=== PATIENT | male | born 1970 | race Caucasian/White ===

== ENCOUNTER → 2018-09-19 | Outpatient (CLI) | payer OTHER ==
[2018-09-19 16:21] LABS: ABSOLUTE BASOPHILS 0.1 thou/uL (0.0-0.2); ABSOLUTE EOSINOPHILS 0.1 thou/uL (0.0-0.7); ABSOLUTE LYMPHOCYTES 1.6 thou/uL (0.8-5.3); ABSOLUTE MONOCYTES 0.7 thou/uL (0.0-1.2); ABSOLUTE NEUTROPHILS 6.2 thou/uL (1.6-8.1); BASOPHILS 0.8 %; EOSINOPHILS 0.9 %; HEMATOCRIT 51.4 % (42.0-52.0); HEMOGLOBIN 17.2 gm/dL (14.0-18.0); LYMPHOCYTES 18.4 %; MCH 29.2 pg (26.0-34.0); MCHC 33.5 g/dL (28.0-37.0); MCV 87.1 fL (80.0-100.0); MONOCYTES 8.3 %; MPV 7.7 fl. (7.2-11.1); NUCLEATED RBCS 0 /100WBC; PLATELET COUNT* 257 thou/uL (150-400); POLYS 71.6 %; RBC 5.91 mil/uL (4.50-6.00); RDW-CV 13.6 % (10.5-14.5); WBC 8.6 thou/uL (4.0-11.0)
[2018-09-19 16:34] LABS: ALBUMIN 3.9 g/dL (3.4-5.0); ALKALINE PHOSPHATASE 90 U/L (46-116); ANION GAP 9 mmol/L (7-16); BUN 25 mg/dL (7-18); CALCIUM 8.7 mg/dL (8.5-10.1); CHLORIDE 102 mmol/L (98-107); CHOLESTEROL 182 mg/dL (<200); CO2 28 mmol/L (21-32); CREATININE 1.1 mg/dL (0.6-1.3); GLUCOSE 100 mg/dL (70-99); HDL CHOLESTEROL 43 mg/dL (>40); LDL CHOLESTEROL 126 mg/dL (<100); POTASSIUM 4.5 mmol/L (3.5-5.1); SERUM ASSESSMENT CLEAR; SGOT 18 U/L (15-37); SGPT 37 U/L (30-65); SODIUM 139 mmol/L (136-145); TC:HDL 4.2 Ratio (Not establshd); TOTAL BILIRUBIN 1.2 mg/dL (<0.1-1.0); TOTAL PROTEIN 7.3 g/dL (6.4-8.2); TRIGLYCERIDE 66 mg/dL (<150); VLDL 13 mg/dL (<40)
== END ==
LOC: M.LAB 15:56
PROVIDERS: Family Medicine
DX: K21.9 Gastro-esophageal reflux disease without esophagitis (principal); F43.21 Adjustment disorder with depressed mood; M25.50 Pain in unspecified joint

== ENCOUNTER 2020-08-05 22:18 | Emergency (ER) | payer OTHER ==
[~2020-08-05] VITALS: Ht 175.3 cm; Wt 99.8 kg
[2020-08-05] MEDS ORDERED: PRILOSEC OTC20 MG PO (22:26)
[2020-08-05 23:35] VITALS: BP 126/68
== END 2020-08-05 23:36 | disposition home or self-care (01) ==
LOC: M.ERS 22:18
DX: S61.210A Laceration without foreign body of right index finger without damage to nail, initial encounter (principal); K21.9 Gastro-esophageal reflux disease without esophagitis; E78.00 Pure hypercholesterolemia, unspecified; Z79.899 Other long term (current) drug therapy; W26.0XXA Contact with knife, initial encounter; Y93.89 Activity, other specified; Y92.89 Other specified places as the place of occurrence of the external cause; Y99.8 Other external cause status

== ENCOUNTER 2021-06-10 13:29 | Inpatient (IN) | payer OTHER ==
[2021-06-10] VITALS (15 sets, daily range): BP systolic 103–135; BP diastolic 57–101
[~2021-06-10] VITALS: Ht 175.3 cm; Wt 104.3 kg
[~2021-06-10 13:29] MED LIST: PRILOSEC OTC20 MG PO
[2021-06-10 13:44] LABS: ABSOLUTE BASOPHILS 0.1 thou/uL (0.0-0.2); ABSOLUTE EOSINOPHILS 0.1 thou/uL (0.0-0.7); ABSOLUTE LYMPHOCYTES 2.1 thou/uL (0.8-5.3); ABSOLUTE MONOCYTES 1.1 thou/uL (0.0-1.2); ABSOLUTE NEUTROPHILS 11.3 thou/uL (1.6-8.1); BASOPHILS 0.6 %; EOSINOPHILS 0.6 %; HEMATOCRIT 49.8 % (42.0-52.0); HEMOGLOBIN 16.7 gm/dL (14.0-18.0); LYMPHOCYTES 14.3 %; MCH 28.2 pg (26.0-34.0); MCHC 33.5 g/dL (28.0-37.0); MCV 84.1 fL (80.0-100.0); MONOCYTES 7.4 %; NUCLEATED RBCS 0 /100WBC; PLATELET COUNT* 312 thou/uL (150-400); POLYS 77.1 %; RBC 5.91 mil/uL (4.50-6.00); RDW-CV 13.9 % (10.5-14.5); WBC 14.6 thou/uL (4.0-11.0)
[2021-06-10 13:53] LABS: CALCIUM 9.3 mg/dL (8.5-10.1); CREATININE 1.6 mg/dL (0.6-1.3); POTASSIUM 3.3 mmol/L (3.5-5.1)
[2021-06-10 13:55] LABS: APTT 21.1 Seconds (25.0-31.3); PROTIME 11.1 Seconds (9.20-11.50)
--- NOTE | 2021-06-10 14:00 | NUR ---
PT TAKEN TO COURTESY VAN DRIVER [id number].
[2021-06-10 14:03] LABS: ALBUMIN 4.4 g/dL (3.4-5.0); MAGNESIUM 1.6 mg/dL (1.8-2.4); TOTAL BILIRUBIN 1.4 mg/dL (<0.1-1.0); TOTAL PROTEIN 7.9 g/dL (6.4-8.2)
--- NOTE | 2021-06-10 14:06 | NUR ---
LATE ENTRY FOR 1338: WHILE STARTING SECOND IV LINE PT STATES "I THINK I'M GOING TO PASS OUT" PT THEN BECOMES UNRESPONSIVE. DR GARCIA CALLED INTO ROOM, CPR STARTED, BVM USED, PATCHES PLACED ON CHEST, PT IN VTACH, CHARGED TO 200J AND SHOCKED, CPR RESUMED. PT THEN WAKES UP AND BEGINS TALKING, BECOMES UNRESPONSIVE AGAIN, SHOCKED WITH 200J AGAIN, PT AWAKE AND ALERT WHEN DR VALENZUELA ARRIVES. PT IS THEN EMERGENTLY TAKEN TO TRAINING PROGRAM DEVELOPER.
--- NOTE | 2021-06-10 14:43 | NUR ---
SEE CODE STEMI FLOWSHEET FOR REMAINDER OF DOCUMENTATION INCLUDING MEDICATION ADMINISTRATION.
[2021-06-11] VITALS (10 sets, daily range): BP systolic 72–122; BP diastolic 46–91
--- NOTE | 2021-06-11 02:27 | NUR ---
INITAL ASSESSMENT PT HAD NOT VOIDED AND HAD A FULL BLADDER. BLADDER SCAN 667MLS. ORDER OBTAINED FOR STRAIGHT CATH. PT GIVEN URINAL AND WATER RAN. PT FOUND OOB VOIDING. PT ON BED REST POST HEART CATH UNTIL 2229 EXCEPT FOR THAT EPISOID. UP AT 2229 WITH OUT DIFFICULTY. PT ANGRY PHONE IN ROOM IS TURNED OFF TO OUT GOING CALLS. PT CAME TO NURSED STATION WHEN HIS MOTHER CALLED AND REQUESTED HIS EYE GLASSES, CELL PHONE AND WALLET. PT CALLED A FRIEND AND MADE ARRANGEMENTS TO HAVE FRIEND GO TO MOTHERS HOME AND PICK ITEMS UP. CHECKED WITH ED NO ITEMS BROUGHT IN. PT GETS UPSET QUICKLY. THIS RN DID PT TEACHING ON RELAXATION. VANSTONE MACHINE OPERATOR TRACING SR. NS INFUSING AT 100MLS/HR. PT STATED PAIN IN CHEST TENDER NON RADIATING. HYDROCODONE GIVEN TWICE. AMBIEN GIVEN FOR SLEEP. R GROIN SITE SOFT SLIGHT BRUSING.
[2021-06-11 04:14] LABS: HEMATOCRIT 44.5 % (42.0-52.0); MCH 27.6 pg (26.0-34.0); MCHC 32.9 g/dL (28.0-37.0); MCV 83.8 fL (80.0-100.0); MPV 8.2 fl. (7.2-11.1); RBC 5.32 mil/uL (4.50-6.00); RDW-CV 13.8 % (10.5-14.5); WBC 15.5 thou/uL (4.0-11.0)
[2021-06-11 04:21] LABS: BUN 17 mg/dL (7-18); CALCIUM 8.1 mg/dL (8.5-10.1); CHLORIDE 104 mmol/L (98-107); CHOLESTEROL 106 mg/dL (<200); CO2 26 mmol/L (21-32); CREATININE 1.2 mg/dL (0.6-1.3); GLUCOSE 98 mg/dL (70-99); HDL CHOLESTEROL 41 mg/dL (>40); LDL CHOLESTEROL 55 mg/dL (<100); TC:HDL 2.6 Ratio (Not establshd); TRIGLYCERIDE 51 mg/dL (<150); VLDL 10 mg/dL (<40)
[2021-06-11 04:23] LABS: HEMOGLOBIN 14.7 gm/dL (14.0-18.0)
[2021-06-11 04:25] LABS: ANION GAP 6 mmol/L (7-16); POTASSIUM 4.5 mmol/L (3.5-5.1); SODIUM 136 mmol/L (136-145)
[2021-06-11 06:01] LABS: SERUM ASSESSMENT Clear
--- NOTE | 2021-06-11 10:32 | EKG ---
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 : 1970 Requested By: Tello Kenny Order Number: [id number] Omar MD: Reji Newby Measurements Intervals [place] Rate: 102 P: 52 GA: 169 QRS: -59 QRSD: 112 T: 43 QT: 383 QTc: 499 Interpretive Statements Sinus tachycardia Incomplete RBBB and LAFB Anterolateral infarct, acute (LAD) Compared to ECG 06/10/2021 13:29:12 Sinus rhythm no longer present Myocardial infarct finding still present Electronically Signed On 06-11-2021 10:32:36 CDT by Reji Newby [email or web address] <ELECTRONICALLY SIGNED> By: Reji Newby MD, FACC 06/11/21 1032 1330 1330 Reji Newby MD, FAC /EPI
--- NOTE | 2021-06-11 10:32 | EKG ---
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 : 1970 Requested By: Tello Kenny Order Number: [id number] MD: Reji Newby Measurements Intervals [place] Rate: 95 P: 54 [place]: 167 QRS: -61 QRSD: 120 T: 25 QT: 379 QTc: 477 Interpretive Statements Sinus rhythm Incomplete RBBB and LAFB Anterolateral infarct, acute (LAD) Baseline wander in lead(s) I,II,III,aVL,aVF,V1,V2,V3,V4,V5,V6 No previous ECG available for comparison Electronically Signed On 06-11-2021 10:32:18 CDT by Reji Newby [email or web address] <ELECTRONICALLY SIGNED> By: Reji Newby MD, [facility] 06/11/21 1032 1329 1329 Reji Newby MD, [facility] /EPI
[2021-06-12] VITALS: BP 93/57
[2021-06-12 04:00] VITALS: BP 105/59
[2021-06-12 05:04] LABS: HEMATOCRIT 46.9 % (42.0-52.0); HEMOGLOBIN 14.8 gm/dL (14.0-18.0); MCH 26.8 pg (26.0-34.0); MCHC 31.5 g/dL (28.0-37.0); MPV 8.2 fl. (7.2-11.1); RBC 5.52 mil/uL (4.50-6.00); RDW-CV 13.8 % (10.5-14.5); WBC 11.5 thou/uL (4.0-11.0)
[2021-06-12 05:13] LABS: CALCIUM 8.4 mg/dL (8.5-10.1); CREATININE 1.2 mg/dL (0.6-1.3); POTASSIUM 4.1 mmol/L (3.5-5.1)
--- NOTE | 2021-06-12 10:19 | EKG ---
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 : 1970 Requested By: Reji Newby Order Number: [id number] Omar MD: Reji Newby Measurements Intervals [place] Rate: 72 P: 47 [place]: 181 QRS: 94 QRSD: 77 T: 86 QT: 396 QTc: 434 Interpretive Statements Sinus rhythm Anterolateral infarct, acute (LAD) Compared to ECG 06/10/2021 13:30:34 Sinus tachycardia no longer present Left anterior fascicular block no longer present Incomplete right bundle-branch block no longer present Myocardial infarct finding still present Electronically Signed On 06-12-2021 10:19:09 CDT by Reji Newby [email or web address] <ELECTRONICALLY SIGNED> By: Reji Newby MD, [facility] 06/12/21 1019 1007 1007 Reji Newby MD, [facility] /EPI
[2021-06-12] MEDS ORDERED: NORCO 10-325 T1 EACH PO (11:56)
[2021-06-12] MEDS ORDERED: LIPITOR 40 MG T40 M1 PO (11:56)
[2021-06-12] MEDS ORDERED: CARVEDILOL3.125 MG PO (11:56)
[2021-06-12] MEDS ORDERED: BAYER CHEWABLE81 MG PO (11:56)
[2021-06-12] MEDS ORDERED: NITROGLYCERIN0.4 MG SUBLING (11:56)
[2021-06-12] MEDS ORDERED: EFFIENT10 MG PO (11:56)
[2021-06-12 12:00] VITALS: BP 108/64
[2021-06-12 12:34] VITALS: BP 108/64
--- NOTE | 2021-06-12 13:06 | NUR ---
PT DISCHARGED AT 1300 WITH ALL BELONGINGS AND D/C INSTRUCTIONS. PT LEFT WITH NEIGHBOR IN A PRIVATE CAR. IV AND TELE ROMOVED
--- NOTE | 2021-06-12 13:41 | CARD ---
[address] [address] CARDIAC CATH REPORT Name: LULY KELLY Room: [address] IN ..#: [id number] Admission: 06/10/21 Attend Phys: Mina Palomares Discharge: 06/12/21 Date of : 66 Report #: [id number] THIS REPORT FOR: cc: Afshin Diop Vincent R. DO Blick, David R. MD [facility] ~ ADDENDUM APPROVED REPORT Study performed: 06/10/2021 13:45:14 Patient Details Patient Status: In-Patient Room #: The patient is a 50 year-old male Event Personnel Reji Newby Paving Contractor, Frankie Hartley RN RN, Michelet Merino GIFTS OFFICER Monitor, Nayana Arteaga RTR Scrub, Reji Newby Receiver Stocker Procedures Performed cath pci, direct current cardioversion, aspiration thrombectomy Indication Abnormal ECG, Arrhythmia, STEMI (>0 to less than or equal to 6 hours), Chest pain Admission/Lab Medications/Medications given during procedure Glycoprotein IllbIlla Inhibitors, Heparin Unfract. Procedure Narrative The patient was brought emergently to the Cardiac Catheterization Laboratory and was prepped and draped in a sterile manner. The right femoral was infiltrated with 1% Lidocaine subcutaneous anesthesia. IV conscious sedation was used throughout procedure with appropriate monitoring and was performed in the presence of a registered nurse who was an independent trained observer other than the physician performing the procedure. A Jefferson 6 FR sheath was inserted into the right femoral artery. Coronary angiography was performed using coronary diagnostic catheters. The right coronary system was accessed and visualized with a JR4 6fr catheter. The left coronary system was accessed and visualized with a JL4 6fr catheter. The left ventricle was accessed and visualized with a PC: [place] 6[place] [address] CARDIAC CATH REPORT Name: LULY KELLY Room: [address] IN ..#: [id number] Admission: 06/10/21 Attend Phys: Mina Palomares Discharge: 06/12/21 Date of : 66 Report #: [id number] ventricular/Aortic Valve gradient assessed via catheter pullback. Left ventriculogram was performed in MEJIA projection. Closure device was deployed with a 6 Fr Angioseal STS 6Fr. There was no hematoma. Patient defib @ 200j & 300j prior to started of the case secondary to ventricular fibrillation. Attempted procedure from the right radial artery. Arterial blood was obtained, but unable to advance wire into the radial artery. It was decided to proceed from the right femoral artery. Intraoperative Conscious Sedation Sedation start time: 1406 Case end Time: 1509 Fentanyl 100.0 mcg Versed 2 mg Morphine 2 mg Fluoro Time: 11.0 minutes Dose: DAP 02381.2 cGycm2 2847 mGy Contrast Type and Amount: Visipaque 300 ml Coronary Angiography The patient's coronary anatomy is right dominant. Diagnostic Cath Left Main 0% stenosis LAD 90% proximal stenosis, and complete occlusion of the apical LAD Circumflex 0% stenosis Right Coronary 30% proximal stenosis Left Ventriculography The left ventricular ejection fraction is estimated to be 30-35%. Left ventricular wall motion abnormalities are present. There is no mitral insufficiency. Severe hypokinesis noted of the distal anterior wall and apex. Hemodynamics The aortic pressure is 107/74 mmHg with a mean of 88 mmHg. The left ventricular pressure is 102/10 mmHg with a mean of mmHg. The left ventricular end diastolic pressure is 20 mmHg. There was no gradient across the aortic valve upon pullback. Pullback from the left ventricle to the aorta revealed no gradient across the aortic valve. PCI Technique Lesion Anticoagulation was achieved with Heparin[place] [address] CARDIAC CATH REPORT Name: LULY KELLY Room: [address]#: [id number] Admission: 06/10/21 Attend Phys: Mina Palomares Discharge: 06/12/21 Date of : 66 Report #: [id number] Percutaneous coronary intervention was performed on the proximal left anterior descending artery segment. The lesion stenosis prior to intervention was 90% with CHERYL 2 flow. A 6F XB LAD 4.0 Guide Catheter was used to engage the lm ostium. A IG: BMW 190cm Interventional Guidewire was used to cross the lesion. BALLOON DILATION A Balloon catheter Trek RX 2.5 X 12 was inserted and inflated up to 10.00atm for 12seconds. Repeat angiography revealed the following post-dilatation results: 30% stenosis. Additional Inflation: 14.00atm for 10seconds. STENT DEPLOYMENT A drug-eluting stent Vance RX Stent 3.0X18mm was inserted and inflated up to 18.00atm for 14seconds. Repeat angiography revealed the following post-stent deployment results: 0% stenosis. Additional Inflation: 22.00atm for 12seconds. Final angiography reveals 0 % stenosis with CHERYL 3 flow. STENT DEPLOYMENT A stent Ari RX Stent 2.5X12mm was inserted and inflated up to 9atm for 16seconds. PCI Technique Lesion 2 Percutaneous Coronary Intervention was performed on the distal left anterior descending artery segment. Percutaneous coronary intervention was performed on the distal left anterior descending artery segment. The lesion stenosis prior to intervention was 100% with CHERYL 0 flow. A xblad4.0 Guide Catheter was used to engage the lm ostium. A bmw Interventional Guidewire was used to cross the lesion. Balloon Dilation A Balloon catheter 2.5 x 12mm was inserted and inflated up to 8atm for 15seconds. Repeat angiography revealed the following post-dilatation results: 100% occluded. Apical LAD was completely occluded despite aspiration with an aspiration catheter, PTCA, and IC adenosine. Stent Deployment A drug-eluting stent 2.5 x 12 mm was inserted and inflated up to 9atm for 10seconds. Repeat angiography revealed the following post-stent deployment results: 100% occluded. [address] [address] CARDIAC CATH REPORT Name: LULY KELLY Room: [address] IN M.R.#: [id number] Admission: 06/10/21 Attend Phys: Gerardo Kyle Mina Cancino Discharge: 06/12/21 Date of : 66 Report #: [id number] Final angiography reveals 100 % stenosis with CHERYL 0 flow. Comments Apical LAD remained 100% occluded despite efforts. The patient was pain free at the end of the procedure, and it was decided not to proceed with additional efforts. Conclusion 1. 90% stenosis of the proximal LAD and complete occlusion of the apical LAD 2. LVEF 30-35% 3. Successful placement of a drug eluting stent in the proximal LAD. 4. 100% occlusion of the apical LAD. Efforts including IC adenosine, PTCA, aspiration thrombectomy, and placing of a drug eluting stent were unable to open the apical LAD. 5. successful cardioversion of ventricular fibrillation to normal sinus rhythm. Recommendations Cardiac Rehabilitation Referral Aggressive Medical Therapy Medications Administered Prasugrel <ELECTRONICALLY SIGNED> By: Reji Newby MD, FACC 06/12/21 1340 134 134Reji Newby MD, FAC /INF
--- NOTE | 2021-06-12 15:48 | CON ---
[address] [address] CONSULTATION Name: LULY KELLY Room: [address] IN [place].#: [id number] Admission: 06/10/21 Attend Phys: Mina Palomares Discharge: 06/12/21 Date of : 66 Report #: [id number] THIS REPORT FOR: cc: Afshin Diop Vincent R. DO Blick, David R. MD [facility] ~ DATE OF CONSULTATION: 06/10/2021 CARDIOLOGY CONSULTATION HISTORY OF PRESENT ILLNESS: The patient is a 50-year-old single white male who I was asked to see in the Emergency Room today complaining of chest pain. The patient notes for the past couple of years when he gets tired he really notes occasional pain in his chest. Today, he was working outside when he suddenly felt a heaviness in chest and his arm, became diaphoretic. He called paramedics. He was brought here to [place]. He was found to be having evidence of an anterior STEMI. I was asked to see him on emergent basis. He currently has continued to have chest pain. He denies any recent exertional dyspnea, palpitations, syncope, peripheral edema, fever, cough, bleeding. PAST MEDICAL HISTORY: He has had knee surgery, hand surgery, hyperlipidemia, dyspepsia. He has a history of depression. CURRENT MEDICATIONS: Consist of Prilosec. ALLERGIES: He has no known drug allergies. FAMILY HISTORY: Negative for heart disease. SOCIAL HISTORY: He is single. 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 He does not smoke cigarettes, chews tobacco. Rarely drinks alcohol. REVIEW OF SYSTEMS: No history of stroke, asthma, liver disease, kidney disease, cancer, chronic skin condition, psychiatric illness. PHYSICAL EXAMINATION: GENERAL: Revealed a middle-aged female, appeared in severe distress secondary to chest pain. VITAL SIGNS: He had a blood pressure 120/90, pulse is 100, he is afebrile. HEENT: He was anicteric. Conjunctivae pink. Mucous membranes moist. NECK: Veins not distended. No carotid bruits. CHEST: Clear to auscultation. HEART: Regular rate and rhythm. ABDOMEN: Soft. EXTREMITIES: Had no edema. Dorsalis pedis pulses 2+ [place] [address] CONSULTATION Name: LULY KELLY CHELLE Room: [address]#: [id number] Admission: 06/10/21 Attend Phys: Mina Palomares Discharge: 06/12/21 Date of : 66 Report #: [id number] SKIN: Cool and dry. NEUROLOGIC: Nonfocal. LABORATORY DATA: ECG showed a sinus rhythm with ST segment elevation of up to 9 mm in leads V1, V2, V3, V4, V5, I and aVL, reciprocal ST-segment depression in II, III and aVF. His lab work, he had potassium 3.3, creatinine 1.6, glucose 178. His alkaline phosphatase is 136. His high sensitivity troponin was 29. BNP of 9. Previous LDL in 2018 was 126. His hemoglobin is 16.7. IMPRESSION AND RECOMMENDATIONS: 1. Acute anterior STEMI. Recommend urgent cardiac catheterization. 2. Hyperlipidemia. The patient is on a statin drug. He has taken Lescol in the past. 3. History of depression. 4. Use of smokeless tobacco. Total critical care time was from 2:30 p.m. to 4:00 p.m. for a total of 1 hour and 30 minutes. <ELECTRONICALLY SIGNED> By: Reji Newby MD, FACC 06/12/21 1548 1430 2221Dmook Newby MD, FACC /nt
== END 2021-06-12 12:57 | disposition home or self-care (01) | DRG 246 ==
LOC: M.ERS 13:29 → M.CL 13:29 → M.TBA-ER 16:02 → M.2W 16:04
PROVIDERS: Emergency Medicine Emergency Medical Services; Internal Medicine; Internal Medicine Cardiovascular Disease; ADMIT Internal Medicine; ATTEND Internal Medicine
DX: I21.09 ST elevation (STEMI) myocardial infarction involving other coronary artery of anterior wall (principal); I49.01 Ventricular fibrillation; I50.21 Acute systolic (congestive) heart failure; Z20.822 Contact with and (suspected) exposure to COVID-19; K21.9 Gastro-esophageal reflux disease without esophagitis; E78.00 Pure hypercholesterolemia, unspecified; F32.9 Major depressive disorder, single episode, unspecified; E78.5 Hyperlipidemia, unspecified; Z79.82 Long term (current) use of aspirin; Z79.899 Other long term (current) drug therapy